=== PATIENT | female | born 1940 | race Caucasian/White ===

== ENCOUNTER 2020-08-07 07:27 | Outpatient (CLI) | payer MEDICARE, OTHER ==
[2020-08-07 14:35] LABS: Hemoglobin 13.6 g/dL (12.0-16.0); Mean Corpuscular HGB CONC 33.2 g/dL (32.0-36.0); Mean Corpuscular Hemoglobin 31.4 pg (27.0-31.0); Mean Corpuscular Volume 94.5 fL (78.0-98.0); Mean Platelet Volume 8.5 fL (7.4-10.4); Platelet Count 280 thou/uL (130-400); RBC Distribution Width 11.6 % (11.5-14.5); Red Blood Cell (RBC) Count 4.34 mill/uL (4.20-5.40); White Blood Cell (WBC) Count 6.1 thou/uL (4.8-10.8)
[2020-08-07 15:00] LABS: Anion Gap 12 mmol/L (10-20); BUN (Urea Nitrogen) 25 mg/dL (9.8-20.1); Calc. Creatinine Clearance 0 mL/min (70-130); Calcium 10.2 mg/dL (7.8-10.44); Carbon Dioxide 28 mmol/L (23-31); Chloride 101 mmol/L (98-107); Estimated GFR-MDRD 45; Glucose 106 mg/dL (83-110); Potassium 4.3 mmol/L (3.5-5.1); Sodium 137 mmol/L (136-145)
[2020-08-08 12:34] LABS: SARS-CoV-2 MS2 Positive; SARS-CoV-2 N Gene Negative; SARS-CoV-2 S Gene Negative; SARS-CoV-2 by NAA Not Detected (NotDetected); SARS-CoV-2 orf1ab Negative
== END 2020-08-07 07:28 | disposition home or self-care (01) ==
LOC: LABBT 07:27
PROVIDERS: ATTEND Thoracic Surgery (Cardiothoracic Vascular Surgery)
DX: Z01.812 Encounter for preprocedural laboratory examination (principal); Z20.828 Contact with and (suspected) exposure to other viral communicable diseases
CPT/HCPCS: 80048; 85027; U0003; 87635

== ENCOUNTER 2020-08-07 08:45 | Inpatient (IN) | payer MEDICARE, OTHER ==
--- NOTE | 2020-08-08 11:52 | HP ---
HISTORY OF PRESENT ILLNESS: This is a 79-year-old female referred by Dr. Pruitt for a critical right internal carotid artery stenosis. She was undergoing clearance evaluation for repeat left hip surgery by Dr. Gonzales. She was noted to have a carotid bruit and subsequent ultrasound demonstrated velocities of 500 cm/second on the right. 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 She has risk factors of hypertension, remote smoking history, and hyperlipidemia. PAST MEDICAL HISTORY: She does have a history of coronary artery disease treated with a stent following an KS in 2016 in [place]. As mentioned, she has hyperlipidemia and hypertension. PAST SURGICAL HISTORY: Cholecystectomy, right nephrectomy, right and left hip replacements with the left hip still giving her difficulty. SOCIAL HISTORY: The patient does not smoke or drink. ALLERGIES: SHE HAS ALLERGIES TO ASPIRIN, WHICH CAUSES AN UPSET STOMACH. MEDICATIONS: Her medications include metoprolol 50 mg daily, losartan/hydrochlorothiazide 100/25, simvastatin 40, iron supplements, and duloxetine 60 mg daily. She has currently also had Plavix added. PHYSICAL EXAMINATION: VITAL SIGNS: Height 5 feet 6 inches, weight 152. NECK: Soft bruit on the left. CARDIAC: Regular rate and rhythm with no murmurs. LUNGS: Clear to auscultation. ABDOMEN: Soft and nontender. EXTREMITIES: Without edema. She has palpable pedal pulses. I have reviewed her angiography as well as CTA and she does have an ostial right internal carotid artery lesion with calcification. Her distal internal carotid artery is rather small and appears to decrease in size in the mid cervical region between the bifurcation and the base of the skull, but there is no plaque visible here. Plan at this time is for open left carotid endarterectomy and informed consent has been obtained. Job ID: [id number]
[2020-08-11] MEDS ORDERED: Heparin 5,000 UNITS/ML VIAL ONE (06:31)
[2020-08-11] MEDS ORDERED: Fentanyl 100 MCG/2 ML VIAL ONE ×3 (06:43→09:42)
[2020-08-11] MEDS ORDERED: Midazolam HCl 2 mg/2 ml Vial ONE (06:43)
[2020-08-11] MEDS ORDERED: Promethazine HCl 25 MG/ML VIAL IM PRN (06:57)
[2020-08-11] MEDS ORDERED: Ondansetron HCl/PF 4 MG/2 ML Vial IVP PRN (06:57)
[2020-08-11] MEDS ORDERED: Promethazine HCl 25 MG/ML VIAL SLOW IVP PRN (06:57)
[2020-08-11] MEDS ORDERED: Protamine Sulfate 50 MG/5 ML VIAL ONE (08:35)
[2020-08-11] MEDS ORDERED: Bupivacaine PF 0.5% 30 ML VIAL ONE (08:37)
[2020-08-11] MEDS ORDERED: HYDROcodone/Acetaminophen 5/325 mg Tablet PO PRN (09:16)
[2020-08-11] MEDS ORDERED: Nitroglycerin 50 MG/250 ML BOT 250 ML IVPB PRN (09:16)
[2020-08-11] MEDS ORDERED: Fentanyl 100 MCG/2 ML VIAL SLOW IVP PRN ×2 (09:16)
[2020-08-11] MEDS ORDERED: Acetaminophen 325 MG TAB PO PRN (09:16)
[2020-08-11] MEDS ORDERED: PHENYLEPHRINE-NS 100 MCG/ML 10 ML SYRINGE ONE (09:48)
[2020-08-11] MEDS ORDERED: PROPOFOL 200 MG/20 ML VIAL ONE (09:48)
[2020-08-11] MEDS ORDERED: Rocuronium Bromide 10 MG/ML (10ML VIAL) ONE (09:48)
[2020-08-11] MEDS ORDERED: Dexamethasone 20 MG/5 ML VIAL ONE (09:48)
[2020-08-11] MEDS ORDERED: Ondansetron PF 4 MG/2 ML Vial ONE (09:48)
[2020-08-11] MEDS: HYDROcodone/Acetaminophen 5/325 mg Tablet PO PRN ×3 (12:12→21:03)
[2020-08-11] MEDS: Ondansetron PF 4 MG/2 ML Vial IVP PRN (12:15)
[2020-08-11] MEDS: Sodium Chloride 0.9% 1,000 ML IV SCH (12:16)
[2020-08-11] MEDS: DOPamine 400 MG/D5W 250 ML 250 ML IVPB PRN (13:10)
[2020-08-11 13:16] VITALS: BMI 25.5
[2020-08-11] MEDS: CEFAZOLIN 2 GM in Premix Bag 1 BAG IVPB SCH ×2 (15:39→21:04)
[2020-08-11 20:50] VITALS: BP 110/51
[2020-08-11] MEDS ORDERED: Carvedilol 6.25 MG TAB PO SCH (21:00)
[2020-08-11] MEDS ORDERED: Simvastatin 40 MG TAB PO SCH (21:00)
[2020-08-11] MEDS ORDERED: Metoprolol Tartrate 50 MG TAB PO SCH (21:00)
[2020-08-11] MEDS: Atorvastatin Calcium 20 MG TAB PO SCH (21:04)
[2020-08-12] MEDS: HYDROcodone/Acetaminophen 5/325 mg Tablet PO PRN ×6 (00:47→23:25)
[2020-08-12] MEDS: CEFAZOLIN 2 GM in Premix Bag 1 BAG IVPB SCH (05:01)
[2020-08-12] MEDS: Sodium Chloride 0.9% 1,000 ML IV SCH (05:30)
[2020-08-12] MEDS: DOPamine 400 MG/D5W 250 ML 250 ML IVPB PRN (05:47)
[2020-08-12] MEDS ORDERED: Clopidogrel Bisulfate 75 MG TAB PO SCH (09:00)
[2020-08-12] MEDS: Aspirin Chewable 81 MG TAB PO SCH ×2 (09:00→09:30)
[2020-08-12] MEDS ORDERED: DULoxetine 60 MG CAP PO SCH (09:00)
[2020-08-12] MEDS: Ondansetron PF 4 MG/2 ML Vial IVP PRN (09:30)
--- NOTE | 2020-08-12 10:22 | OP ---
DATE OF PROCEDURE: 08/11/2020 PREOPERATIVE DIAGNOSIS: Severe asymptomatic right carotid stenosis. PROCEDURE PERFORMED: Right carotid endarterectomy with bovine patch angioplasty. ANESTHESIA: General. ESTIMATED BLOOD LOSS: Less than 100. DESCRIPTION OF PROCEDURE: After adequate anesthesia had been obtained, ultrasound was used to locate the carotid bulb, following which the patient was prepped and draped. Incision was made, carried through the platysma, rotating sternocleidomastoid muscle. The vagus nerve was identified lateral and avoided. The common internal and external carotid arteries were dissected out, following which the patient was given 7500 units of heparin. ACT levels were adequate. Following this, the clamps were applied. Arteriotomy performed and a 10-[place] shunt was placed and it fit snugly in the internal carotid artery. An 8-[place] was considered, but back flow was quite poor. Following this, endarterectomy was performed with satisfactory tapering distally. A bovine patch was then used to close the arteriotomy after irrigating the endarterectomized segment thoroughly. Following near completion of the suture line, the shunt was removed. Vessels backflushed and forward flushed, and flow restored up the external and then internal carotid artery. Protamine was given to partially reverse the heparin, but due to continued needle hole bleeding, an additional 25 mg of protamine was given. After a prolonged period of hemostasis, Surgicel was left on the suture line. Wound was closed in layers, 0.5% Marcaine was infiltrated into the subcutaneous tissue, and the subcutaneous tissue and skin were closed in layers. Job ID: [id number]
[2020-08-12] MEDS: Atorvastatin Calcium 20 MG TAB PO SCH (20:45)
[2020-08-13 00:41] VITALS: TEMP 98.1
== END 2020-08-13 09:49 | disposition home or self-care (01) | DRG 39 ==
LOC: SURG A 08-11 05:40 → CCU 08-11 11:31
PROVIDERS: ADMIT Thoracic Surgery (Cardiothoracic Vascular Surgery); ATTEND Thoracic Surgery (Cardiothoracic Vascular Surgery)
PROC: 03CK0ZZ Extirpation of Matter from Right Internal Carotid Artery, Open Approach (ICD-10-PCS; principal; 2020-08-11)
PROC: 03UK0JZ Supplement Right Internal Carotid Artery with Synthetic Substitute, Open Approach (ICD-10-PCS; 2020-08-11)
DX: I65.21 Occlusion and stenosis of right carotid artery (principal); I25.10 Atherosclerotic heart disease of native coronary artery without angina pectoris; Z96.643 Presence of artificial hip joint, bilateral; I10 Essential (primary) hypertension; E78.5 Hyperlipidemia, unspecified; Z90.5 Acquired absence of kidney; Z95.5 Presence of coronary angioplasty implant and graft; I25.2 Old myocardial infarction; Z90.49 Acquired absence of other specified parts of digestive tract; Z88.8 Allergy status to other drugs, medicaments and biological substances; Z79.899 Other long term (current) drug therapy; Z79.02 Long term (current) use of antithrombotics/antiplatelets
CPT/HCPCS: J0690; J1100; J1265; J1642; J1644; J2250; J2405; J2704; J2720; J3010; S0020